=== PATIENT | female | born 1960 | race Two or more races ===

== ENCOUNTER 2024-12-31 19:10 | Inpatient (IN) | payer OTHER ==
[~2024-12-31] VITALS: Ht 170.2 cm; Wt 117.9 kg
[2024-12-31] MEDS ORDERED: NIFEDIPINE20 MG (20:17)
--- NOTE | 2024-12-31 20:19 | NUR ---
PACIENTE ALERTA Y ORIENTADA X3 LA MISMA REFIERE TENER LA HEMOBLOBINA EN 8 Y TENER UN CULTIVO DE ORINA CON TROY AGULTA. S/V PRESION ELEVADA. PACIENTE EN ESPERA DE EVALUACION MEDICA.
[2025-01-01] MEDS ORDERED: 0.9 % SODIUM CHLORIDE 1,000 ML IV ONE (00:45)
--- NOTE | 2025-01-01 01:03 | NUR ---
RN ROCHA EDUCA SOBRE [place] MEDICO, ESTA REFIERE ENTENDER. SE EXTRAEN MUESTRAS DE LABORATORIO Y SE ADMINISTRAN MEDICAMENTOS RUPERT ORDEN MEDICA. PENDIENTE FECAL.
[2025-01-01 01:40] LABS: BASO % 0.6 % (0.1-1.2); EOS # 0.26 (0.04-0.54); EOS % 3.0 % (0.7-7.0); LYMPH # 1.87 (1.18-3.74); LYMPH % 21.3 % (19.3-53.1); MEAN PLATELET VOLUME 8.90 fl (9.4-12.4); MONO # 0.85 (0.24-0.82); MONO % 9.7 % (4.7-12.5); NEUT # 5.75 (1.56-6.13); NEUT % 65.2 % (34.0-71.1); RED CELL DISTRIBUTION WIDTH 19.9 % (11.6-14.4)
[2025-01-01 01:45] LABS: INR 1.01
[2025-01-01 01:50] LABS: ALT/SGPT 21.0 U/L (12-78); AST/SGOT 7.0 U/L (15-37); BILIRUBIN TOTAL 0.34 mg/dL (0.3-1.2); BUN CREA RATIO 25.0 (7.0-25.0); CREATININE SERUM 0.87 mg/dL (0.55-1.02); GFR 65.97; GLOBULINA 3.9 G/DL (2.4-3.5); OSMOLALITY SERUM 290.0 MOSM/KG (275-295)
[2025-01-01 02:13] LABS: GLUCOSE FASTING 303.0 mg/dL (65-100)
[2025-01-01 02:18] LABS: URINE APPEARANCE Clear; URINE BILIRRUBIN Negative (NEGATIVE); URINE BLOOD Negative; URINE COLOR Yellow; URINE KETONE Negative (NEGATIVE); URINE LEUKOCYTE Negative; URINE NITRATE Negative; URINE PROTEIN Negative (NEGATIVE); URINE UROBILINOGEN 0.2 E.U./dl
[2025-01-01 02:22] LABS: URINE BACTERIA 295.1 uL (0.0-1933); URINE EPITHELIAL CELLS 5.2 uL (0.0-38.8); URINE WBC 2.7 uL (0.0-23.2)
[2025-01-01 02:25] LABS: URINE CAST 0.43 uL (0.0-1.40); URINE GLUCOSE >=1000 MG/DL (NEGATIVE); URINE RBC 1.3 uL (0.0-20.8)
[2025-01-01] MEDS ORDERED: BARIUM SULFATE 450 ML ORAL.SUSP PO ONE (03:00)
--- NOTE | 2025-01-01 10:34 | NUR ---
DEMETRIUS BOYLE COLECTA MUESTRA DE LABORATORIO BAJO MEDIDAS ASEPTICAS.
[2025-01-01 11:03] LABS: BASO % 0.3 % (0.1-1.2); EOS # 0.15 (0.04-0.54); EOS % 2.5 % (0.7-7.0); LYMPH # 1.15 (1.18-3.74); LYMPH % 19.3 % (19.3-53.1); MEAN PLATELET VOLUME 8.80 fl (9.4-12.4); MONO # 0.66 (0.24-0.82); MONO % 11.1 % (4.7-12.5); NEUT # 3.95 (1.56-6.13); NEUT % 66.5 % (34.0-71.1); RED CELL DISTRIBUTION WIDTH 19.9 % (11.6-14.4)
[2025-01-01 12:46] LABS: FECAL LEUKOCYTES NEGATIVE (NEGATIVE)
[2025-01-01 12:47] LABS: ob NEGATIVE (NEGATIVE)
[2025-01-01] MEDS ORDERED: PANTOPRAZOLE SODIUM 40 MG/VIAL VIAL IV PUSH ONE (13:30)
[2025-01-01] MEDS ORDERED: LOSARTAN POTASSIUM 100 MG TABLET PO SCH (16:28)
[2025-01-01] MEDS ORDERED: NIFEDIPINE 30 MG TAB.SA.OSM PO SCH (16:28)
[2025-01-01] MEDS ORDERED: 0.9 % SODIUM CHLORIDE 1,000 ML IV SCH (16:30)
[2025-01-01] MEDS ORDERED: DEXTROSE 50 % IN WATER 0.5 G/ML DISP.SYRIN IV PRN (16:30)
[2025-01-01] MEDS ORDERED: ACETAMINOPHEN 325 MG TABLET PO PRN (16:30)
[2025-01-01] MEDS ORDERED: INSULIN LISPRO 1,000 UNIT/10 ML UNITS SUBCUTANEO PRN (16:30)
[2025-01-01] MEDS ORDERED: PANTOPRAZOLE SODIUM 40 MG/VIAL VIAL IV SCH (17:00)
[2025-01-01] MEDS ORDERED: INSULIN LISPRO 1,000 UNIT/10 ML UNITS SUBCUTANEO ONE (17:18)
[2025-01-01 18:30] VITALS: BP 156/76; O2SAT 100
[2025-01-01 21:08] VITALS: O2SAT 84
[2025-01-02 00:14] VITALS: O2SAT 98
[2025-01-02 02:01] VITALS: BP 132/77; O2SAT 98
[2025-01-02 03:07] LABS: BASO % 0.5 % (0.1-1.2); EOS # 0.25 (0.04-0.54); EOS % 3.9 % (0.7-7.0); LYMPH # 1.38 (1.18-3.74); LYMPH % 21.4 % (19.3-53.1); MEAN PLATELET VOLUME 9.40 fl (9.4-12.4); MONO # 0.68 (0.24-0.82); MONO % 10.6 % (4.7-12.5); NEUT # 4.08 (1.56-6.13); NEUT % 63.3 % (34.0-71.1); RED CELL DISTRIBUTION WIDTH 20.0 % (11.6-14.4)
[2025-01-02 05:12] VITALS: O2SAT 90
[2025-01-02 09:17] VITALS: O2SAT 90
[2025-01-02 09:37] VITALS: BP 114/69; O2SAT 93
== END 2025-01-02 13:14 | disposition home or self-care (01) | DRG 812 ==
LOC: ER 19:10 → MEDI 01-01 16:55
PROVIDERS: General Practice; ADMIT Internal Medicine; ATTEND Internal Medicine
PROC: BW21ZZZ Computerized Tomography (CT Scan) of Abdomen and Pelvis (ICD-10-PCS; principal; 2025-01-01)
PROC: 4A12X4Z Monitoring of Cardiac Electrical Activity, External Approach (ICD-10-PCS; 2025-01-01)
PROC: 30233N1 Transfusion of Nonautologous Red Blood Cells into Peripheral Vein, Percutaneous Approach (ICD-10-PCS; 2025-01-01)
DX: D64.9 Anemia, unspecified (principal); K92.2 Gastrointestinal hemorrhage, unspecified